=== PATIENT | male | born 1985 | race Caucasian/White ===

== ENCOUNTER 2021-03-27 05:47 | Emergency (ER) | payer OTHER ==
[2021-03-27] MEDS ORDERED: DEXAMETHASONE SOD PHOSPHATE 10 MG/1 ML VIAL IM ONE (06:36)
[2021-03-27] MEDS ORDERED: ALBUTEROL SO4 2.5/IPRATROPIUM 0.5 INH SOL 3 ML VIAL.NEB. NEB ONE (06:36)
[2021-03-27 06:47] VITALS: BMI 32.7
[2021-03-27 07:05] VITALS: BP 123/80; PULSE 59; TEMP 98.4
== END 2021-03-27 08:36 ==
LOC: JER 05:47
PROC: 3E033NZ Introduction of Analgesics, Hypnotics, Sedatives into Peripheral Vein, Percutaneous Approach (ICD-10-PCS; principal; 2021-03-27)
PROC: 3E0F7GC Introduction of Other Therapeutic Substance into Respiratory Tract, Via Natural or Artificial Opening (ICD-10-PCS; 2021-03-27)
DX: R05.9 Cough, unspecified (principal); R06.02 Shortness of breath
CPT/HCPCS: 71046-TC-FY; 87804; 93005; 93010; 99284-25; C9803; J1100; U0003; U0005

== ENCOUNTER 2021-12-30 09:44 | Emergency (ER) | payer OTHER ==
[2021-12-30 09:48] VITALS: BP 126/82; PULSE 70; RESP 18; TEMP 98.3; BMI 31.4
[2021-12-30] MEDS ORDERED: SODIUM CHLORIDE 0.9% 1000 ML INFUS.BAG IV ONE (10:23)
[2021-12-30 11:22] LABS: BASO % 0.6 % (0-2.0); EOS % 0.9 % (0-4.5); HEMOGLOBIN 13.2 GM/dL (11.7-16.9); LYMPH % 20.2 % (8-40); MCH 27.9 pg (25.7-33.7); MEAN CELL VOLUME 84.6 fl (80-96); MONO % 5.9 % (3.8-10.2); NEUT % 72.4 % (42.8-82.8); PLATELET COUNT 269 10^3/uL (134-434); RBC 4.72 M/mm3 (4.00-5.60); WHITE BLOOD COUNT 7.2 K/mm3 (4.0-10.0)
[2021-12-30 11:44] LABS: CALCIUM 8.6 mg/dL (8.5-10.1)
[2021-12-30 11:45] LABS: BLOOD UREA NITROGEN 13.3 mg/dL (7-18)
[2021-12-30 11:46] LABS: ALBUMIN 3.6 g/dl (3.4-5.0)
[2021-12-30 11:48] LABS: CREATININE 0.9 mg/dL (0.55-1.3)
[2021-12-30 11:50] LABS: BILIRUBIN,TOTAL 0.4 mg/dL (0.2-1); TOT PROT 6.7 g/dl (6.4-8.2)
== END 2021-12-30 14:18 | disposition home or self-care (01) ==
LOC: JER 09:44
DX: T83.098A Other mechanical complication of other urinary catheter, initial encounter (principal)
CPT/HCPCS: 36415; 80053; 85025; 99283-25